=== PATIENT | male | born 1990 | race African-American/Black ===

== ENCOUNTER 2022-08-30 03:46 | Emergency (ER) | payer MEDICAID, OTHER ==
[~2022-08-30] VITALS: Ht 172.7 cm; Wt 75.2 kg
[2022-08-30] MEDS ORDERED: KETOROLAC 30MG/ML VIAL IM ONE (05:15)
[2022-08-30] MEDS ORDERED: CEFTRIAXONE 2 G PREMIX 50 ML IV ONE (08:00)
[2022-08-30 08:36] LABS: BASOPHILS % 0.2 % (0.0-2.0); EOSINOPHILS % 0.7 % (0.0-5.0); HEMATOCRIT. 41.6 % (42.0-52.0); HEMOGLOBIN. 14.2 g/dL (14.0-18.0); LYMPHOCYTES % 11.2 % (20.0-50.0); MEAN CORPUSCULAR HEMOGLOBIN 30.4 pg (28.0-32.0); MEAN CORPUSCULAR VOLUME 88.9 fL (80.0-94.0); MEAN PLATELET VOLUME 8.4 fl (7.4-10.4); MONOCYTES % 6.9 % (2.0-8.0); PLATELET 193 x1000/uL (130-400); RED BLOOD CELL COUNT 4.68 mill/uL (4.7-6.1); RED CELL DISTRIBUTION WIDTH 13.1 % (11.6-14.6)
[2022-08-30 08:37] VITALS: BP 112/54
[2022-08-30 08:43] LABS: CHLORIDE 106 mEq/L (98-107)
[2022-08-30 08:46] LABS: PROTHROMBIN TIME 10.5 sec (9.6-11.0)
[2022-08-30] MEDS ORDERED: CEFTRIAXONE 2 G in DEXTROSE 5% WATER 50 ML IV NR (09:00)
[2022-09-01] MEDS ORDERED: HYDR-4001 MT (12:24)
== END 2022-08-30 09:59 | disposition left against medical advice (07) ==
LOC: ER 03:46 → CANBEDREQ 09:43 → ER 09:59
DX: S81.032A Puncture wound without foreign body, left knee, initial encounter (principal); Z88.2 Allergy status to sulfonamides; W18.30XA Fall on same level, unspecified, initial encounter; Y93.89 Activity, other specified; Y92.89 Other specified places as the place of occurrence of the external cause; Y99.8 Other external cause status
CPT/HCPCS: 36415; 73562; 73700; 80053; 85025; 85610; 86850; 86900; 86901; 96365; 96372; 99285; J0696; J1885; J7060; Z7610